=== PATIENT | female | born 2005 | race Caucasian/White ===

== ENCOUNTER 2024-06-02 10:28 | Outpatient (CLI) | payer OTHER, SELFPAY ==
[2024-06-02 14:25] LABS: Chlamydia DNA Amplified* NOT DETECTED (No Detected); GC DNA Amplified* NOT DETECTED (No Detected)
== END 2024-06-02 10:29 | disposition home or self-care (01) ==
PROVIDERS: PCP Nurse Practitioner Family; Visit Provider Registered Nurse
DX: E16.2 Hypoglycemia, unspecified (principal); N92.6 Irregular menstruation, unspecified; Z11.3 Encounter for screening for infections with a predominantly sexual mode of transmission; Z12.4 Encounter for screening for malignant neoplasm of cervix; Z13.6 Encounter for screening for cardiovascular disorders; Z13.29 Encounter for screening for other suspected endocrine disorder
CPT/HCPCS: 80061; 84443; 87491; 87591; 87624; 87625; 88141; 88142